=== PATIENT | male | born 1970 | race Caucasian/White ===

== ENCOUNTER 2018-09-17 14:42 | Emergency (ER) | payer OTHER ==
--- NOTE | 2018-09-17 15:52 | PHYS DOC ---
Past History Past Medical History: Anxiety Past Surgical History: Other Alcohol Use: Rarely Drug Use: None Adult General Chief Complaint Chief Complaint: LACERATION/AVULSION HPI HPI Patient is a 48 year old right handed male who presents with obtaining of laceration of left index and middle fingers. Patient states he was cutting vegetables and dropped a sharp knife on his index and third finger with laceration without focal neuro deficit and other injuries. Patient is up-to- date with tetanus immunization. Review of Systems Review of Systems Constitutional: Denies fever or chills [] Eyes: Denies change in visual acuity, redness, or eye pain [] HENT: Denies nasal congestion or sore throat [] Respiratory: Denies cough or shortness of breath [] Cardiovascular: No additional information not addressed in HPI [] GI: Denies abdominal pain, nausea, vomiting, bloody stools or diarrhea [] : Denies dysuria or hematuria [] Musculoskeletal: Denies back pain or joint pain [] Integument: Denies rash or skin lesions, reports laceration [] Neurologic: Denies headache, focal weakness or sensory changes [] Endocrine: Denies polyuria or polydipsia [] All other systems were reviewed and found to be within normal limits, except as documented in this note. Allergies Allergies Allergies Coded Allergies Type Severity Reaction Last Updated Verified Penicillins Allergy Unknown 09/17/18 Yes Physical Exam Physical Exam Constitutional: Well developed, well nourished, mild distress, non-toxic appearance. [] HENT: Normocephalic, atraumatic Eyes: PERRLA, EOMI, conjunctiva normal, no discharge. [] Neck: Normal range of motion, no tenderness, supple, no stridor. [] Cardiovascular:Heart rate regular rhythm, no murmur [] Lungs & Thorax: Bilateral breath sounds clear to auscultation [] Skin: Warm, dry, no erythema, no rash. [] Back: No tenderness, no CVA tenderness. [] Extremities: 1.5 cm flap laceration of left index finger in or not side without tenderness and neurovascular deficit, 0.5 cm laceration of dorsal side of left middle finger without neurovascular deficit and tendon injury , no cyanosis, no clubbing, ROM intact, no edema. [] Neurologic: Alert and oriented X 3, normal motor function, normal sensory function, no focal deficits noted. [] Psychologic: Affect anxious, judgement normal, mood normal. [] Current Patient Data Vital Signs Vital Signs Date Time Temp Pulse Resp B/P (MAP) Pulse Ox O2 Delivery O2 Flow Rate FiO2 09/17/18 14:46 98.1 74 16 99 Room Air EKG EKG [] Radiology/Procedures Radiology/Procedures [] Course & Med Decision Making Course & Med Decision Making Evaluation of patient in ER showed 48-year-old male patient with laceration of left index and middle finger that was repaired with Dermabond and Steri-Strip and index finger aluminium foam splint was placed. Dragon Disclaimer Dragon Disclaimer This electronic medical record was generated, in whole or in part, using a voice recognition dictation system. Laceration Repair Lac Repair Indication: Index and middle finger laceration Procedure: The patient was placed in the appropriate position 1.5 cm flap laceration of left index finger was repaired with Dermabond and Steri-Strip. Total repaired wound length: 1.5 cm and 0.5 cm Other Items: Left middle finger 0.5 cm laceration was repaired with Dermabond and Steri-Strip The patient tolerated the procedure well Complications: none. Departure Departure: Impression: Primary Impression: Laceration of left index finger Disposition: HOME, SELF-CARE (at 1551) Condition: IMPROVED Referrals: KRISTINA ANDRADE DO (PCP) Patient Instructions: Laceration Care, Adult, [id number], Tissue Adhesive Wound Care Additional Instructions: Wound clean and dry May take [id number] ibuprofen or Tylenol as needed for pain Follow-up with your primary care physician in 3-5 days Return to ER if not getting better MAXWELL BRIGGS MD Sep 17, 2018 15:52
[2018-09-17 16:02] VITALS: BP 123/96
== END 2018-09-17 16:02 | disposition home or self-care (01) ==
LOC: ER 14:42
DX: S61.211A Laceration without foreign body of left index finger without damage to nail, initial encounter (principal); S61.213A Laceration without foreign body of left middle finger without damage to nail, initial encounter; F41.9 Anxiety disorder, unspecified; Z88.0 Allergy status to penicillin; W26.0XXA Contact with knife, initial encounter; Y93.89 Activity, other specified; Y92.89 Other specified places as the place of occurrence of the external cause; Y99.8 Other external cause status
CPT/HCPCS: 12001; 99284

== ENCOUNTER 2020-05-02 19:46 | Emergency (ER) | payer OTHER ==
[~2020-05-02] VITALS: Ht 175.3 cm; Wt 86.3 kg
[2020-05-02 19:50] VITALS: BP 144/84
--- NOTE | 2020-05-02 20:30 | PHYS DOC ---
Past History Past Medical History: Anxiety Past Surgical History: Other Alcohol Use: Rarely Drug Use: None General Adult EDM: Chief Complaint: LACERATION/AVULSION HPI: HPI: 50-year-old male presents with laceration of the right calf. The patient was doing some job site clean up. He went to throw a bag when something protruded through the bag and lacerated the back of his right calf. It caused about a 10 cm laceration. His last tetanus shot was 2 years ago. He denies any other concerns or complaints at this time. The bleeding is currently controlled. Review of Systems: Review of Systems: Constitutional: Denies fever or chills Eyes: Denies change in visual acuity HENT: Denies nasal congestion or sore throat Respiratory: Denies cough or shortness of breath Cardiovascular: Denies chest pain or edema GI: Denies abdominal pain, nausea, vomiting, bloody stools or diarrhea : Denies dysuria Musculoskeletal: Denies back pain or joint pain Integument: Laceration right calf Neurologic: Denies headache, focal weakness or sensory changes Endocrine: Denies polyuria or polydipsia Lymphatic: Denies swollen glands Psychiatric: Denies depression or anxiety Heart Score: Risk Factors: Risk Factors: DM, Current or recent (<one month) smoker, HTN, HLP, family history of CAD, obesity. Risk Scores: Score 0 - 3: 2.5% MACE over next 6 weeks - Discharge Home Score 4 - 6: 20.3% MACE over next 6 weeks - Admit for Clinical Observation Score 7 - 10: 72.7% MACE over next 6 weeks - Early Invasive Strategies Allergies: Allergies: Allergies Coded Allergies Type Severity Reaction Last Updated Verified Penicillins Allergy Unknown 09/17/18 Yes Physical Exam: PE: Constitutional: Well developed, well nourished, no acute distress, non-toxic appearance. [] HENT: Normocephalic, atraumatic, bilateral external ears normal, oropharynx moist, no oral exudates, nose normal. [] Eyes: PERRLA, EOMI, conjunctiva normal, no discharge. [] Neck: Normal range of motion, no tenderness, supple, no stridor. [] Cardiovascular:Heart rate regular rhythm, no murmur [] Lungs & Thorax: Bilateral breath sounds clear to auscultation [] Abdomen: Bowel sounds normal, soft, no tenderness, no masses, no pulsatile masses. [] Skin: 10 cm linear laceration of the right calf. [] Back: No tenderness, no CVA tenderness. [] Extremities: No tenderness, no cyanosis, no clubbing, ROM intact, no edema. [] Neurologic: Alert and oriented X 3, normal motor function, normal sensory function, no focal deficits noted. [] Psychologic: Affect normal, judgement normal, mood normal. [] EKG: EKG: [] Radiology/Procedures: Radiology/Procedures: [] Course & Med Decision Making: Course & Med Decision Making Pertinent Labs and Imaging studies reviewed. (See chart for details) [] Dragon Disclaimer: Dragon Disclaimer: This electronic medical record was generated, in whole or in part, using a voice recognition dictation system. Departure Departure: Impression: Primary Impression: Laceration of right calf without complication Qualified Codes: S81.811A - Laceration without foreign body, right lower leg, initial encounter Disposition: HOME/RESIDENCE PRIOR TO ADM Condition: IMPROVED Referrals: KRISTINA ANDRADE DO (PCP) Patient Instructions: Laceration Care, Adult, [id number] Justification of Admission: Justification of Admission: Justification of Admission Dx: N/A SHELL MALDONADO DO May 02, 2020 20:30
== END 2020-05-02 21:38 | disposition home or self-care (01) ==
LOC: ER 19:46
DX: S81.811A Laceration without foreign body, right lower leg, initial encounter (principal); F41.9 Anxiety disorder, unspecified; Z88.0 Allergy status to penicillin; W26.8XXA Contact with other sharp object(s), not elsewhere classified, initial encounter; Y93.89 Activity, other specified; Y92.89 Other specified places as the place of occurrence of the external cause; Y99.0 Civilian activity done for income or pay
CPT/HCPCS: 12004; 99282